=== PATIENT | female | born 1960 | race Caucasian/White ===

== ENCOUNTER 2023-08-11 07:54 | Outpatient (RCR) | payer BC ==
[~2023-08-11 07:54] MED LIST: ASPIRIN E.C. 8181 MG PO; CLOPIDOGREL75 M2 PO; METOPROLOL SUCC25 M1 PO; NORVASC 10MG10 MG PO; OLMESARTAN MEDO40 MG PO
== END 2023-09-09 | disposition home or self-care (01) ==
LOC: CARDREHAB
DX: Z48.812 Encounter for surgical aftercare following surgery on the circulatory system (principal); Z95.5 Presence of coronary angioplasty implant and graft; Z95.810 Presence of automatic (implantable) cardiac defibrillator

== ENCOUNTER 2023-09-10 08:00 | Outpatient (RCR) | payer BC | END 2023-10-10 | disposition home or self-care (01) | LOC: CARDREHAB | DX: Z48.812 Encounter for surgical aftercare following surgery on the circulatory system (principal); Z95.5 Presence of coronary angioplasty implant and graft ==